=== PATIENT | male | born 1990 | race Caucasian/White ===

== ENCOUNTER 2022-07-06 08:12 | Emergency (ER) | payer OTHER ==
[~2022-07-06] VITALS: Wt 108.9 kg
[2022-07-06] MEDS ORDERED: PERCOCET 5-3251 EACH PO (11:50)
[2022-07-06] MEDS ORDERED: ONDANSETRON HYDR4 M1 PO (12:08)
== END 2022-07-06 11:59 | disposition home or self-care (01) ==
LOC: ED 08:12
DX: S32.018A Other fracture of first lumbar vertebra, initial encounter for closed fracture (principal); Z88.8 Allergy status to other drugs, medicaments and biological substances; V49.9XXA Car occupant (driver) (passenger) injured in unspecified traffic accident, initial encounter; Y93.89 Activity, other specified; Y92.410 Unspecified street and highway as the place of occurrence of the external cause; Y99.8 Other external cause status